=== PATIENT | male | born 1985 | race Caucasian/White ===

== ENCOUNTER → 2020-07-15 | Outpatient (CLI) | payer BC ==
--- NOTE | 2020-07-15 09:11 | Diagnostic Imaging Report ---
PROCEDURE: CT abdomen and pelvis without contrast. TECHNIQUE: Multiple contiguous axial images were obtained through the abdomen and pelvis without the use of intravenous contrast. Auto Exposure Controls were utilized during the CT exam to meet ALARA standards for radiation dose reduction. INDICATION: Right flank pain and hematuria. COMPARISON: None available. FINDINGS: Absence of intravenous contrast decreases sensitivity for detection of focal lesions and vascular pathology. LOWER THORAX: There is mild linear scarring/atelectasis in the right middle lobe and lingula. Visualized heart is normal in size. LIVER: Normal. GALLBLADDER: Surgically absent. BILE DUCTS: No biliary ductal dilatation. SPLEEN: Normal. PANCREAS: Normal. No pancreatic ductal dilatation. ADRENAL GLANDS: No nodules. KIDNEYS AND URETERS: No hydronephrosis. No nephroureterolithiasis. Ill-defined subcentimeter focus of low-attenuation in the upper pole of the right kidney is too small to characterize on the basis of this exam, but likely represents a cyst. STOMACH AND BOWEL: Stomach is physiologically-distended. No bowel obstruction. No inflammatory changes. APPENDIX: Normal. PELVIC ORGANS/BLADDER: Bladder is normal. Prostate gland is normal in size. PERITONEUM AND RETROPERITONEUM: No pneumoperitoneum. No abdominal free fluid or loculated collection. LYMPH NODES: No lymphadenopathy. VESSELS: Abdominal aorta is nonaneurysmal. ABDOMINAL WALL: Unremarkable. BONES: No acute abnormality. IMPRESSION: No acute abdominal or pelvic pathology. No findings to account for the patient's symptoms. Dictated by: Dictated on workstation # [id number]
== END ==
LOC: RAD FS 07:49
PROVIDERS: ATTEND Nurse Practitioner Family
DX: R10.9 Unspecified abdominal pain (principal); R31.9 Hematuria, unspecified; Z90.49 Acquired absence of other specified parts of digestive tract
CPT/HCPCS: 74176